=== PATIENT | male | born 1965 | race Caucasian/White ===

== ENCOUNTER 2023-12-19 20:26 | Emergency (ER) | payer OTHER ==
[~2023-12-19] VITALS: Ht 162.6 cm; Wt 81.8 kg
[2023-12-19 20:36] VITALS: BP 147/103; PULSE 111; TEMP 98.3; O2SAT 95
[2023-12-19 21:41] VITALS: RESP 16
[2023-12-19 21:49] LABS: BASOPHILS # (AUTO) 0.1 X10'3 (0-0.2); BASOPHILS % (AUTO) 1.1 % (0-1); EOSINOPHILS # (AUTO) 0.1 X10'3 (0-0.9); EOSINOPHILS % (AUTO) 0.7 % (0-6); HEMATOCRIT 46.5 % (42.0-52.0); HEMOGLOBIN 15.7 g/dl (14.0-17.9); LYMPHOCYTES # (AUTO) 2.4 X10'3 (1.1-4.8); LYMPHOCYTES % (AUTO) 19.3 % (21-51); MEAN CORPUSCULAR HEMOGLOBIN 30.6 PG (27.0-31.0); MEAN CORPUSCULAR HGB CONC 33.8 g/dL (33.0-36.5); MEAN CORPUSCULAR VOLUME 90.5 FL (78-98); MEAN PLATELET VOLUME 7.7 FL (7.4-10.4); MONOCYTES # (AUTO) 1.1 X10'3 (0-0.9); MONOCYTES % (AUTO) 8.6 % (2-12); NEUTROPHILS # (AUTO) 8.7 X10'3 (1.8-7.7); NEUTROPHILS % (AUTO) 70.3 % (42-75); PLATELET COUNT 381 X10'3 (140-440); RED BLOOD COUNT 5.14 X10'6 (4.70-6.10); RED CELL DISTRIBUTION WIDTH 13.7 % (11.5-14.5); WHITE BLOOD COUNT 12.4 X10'3 (4.5-11.0)
[2023-12-19 22:00] LABS: ALANINE AMINOTRANSFERASE 32 U/L (12-78); ALBUMIN 4.2 G/DL (3.4-5.0); ALBUMIN/GLOBULIN RATIO 1.1 (1.1-1.5); ALKALINE PHOSPHATASE 79 IU/L (46-116); ANION GAP 11 (8-16); ASPARTATE AMINO TRANSFERASE 15 U/L (10-37); BILIRUBIN,TOTAL 0.5 MG/DL (0.1-1.0); BLOOD UREA NITROGEN 14 MG/DL (7-18); BUN/CREATININE RATIO 17.3 (10.0-20.0); CALCIUM 9.2 MG/DL (8.5-10.1); CHLORIDE 99 MMOL/L (99-107); CREATININE 0.81 MG/DL (0.60-1.10); GLUCOSE 100 MG/DL (70-104); POTASSIUM 3.7 MMOL/L (3.5-5.1); SODIUM 136 MMOL/L (135-145); TOTAL CARBON DIOXIDE 26.2 MMOL/L (24-32); TOTAL PROTEIN 8.2 G/DL (6.4-8.2); eCRCL 85 ML/MIN; eGFR > 90 ML/MIN
[2023-12-19] MEDS ORDERED: aspirin 325mg tablet PO ONE (23:00)
[2023-12-19 23:13] LABS: D-DIMER < 0.19 MG/L FEU (0-0.50)
[2023-12-19 23:33] LABS: PRO BRAIN NATRIURETIC PEPTIDE 54 PG/ML (0-125)
== END 2023-12-20 00:23 | disposition home or self-care (01) ==
LOC: EEVIPCON 20:26 → ER 20:26
DX: R07.89 Other chest pain (principal); E78.00 Pure hypercholesterolemia, unspecified
CPT/HCPCS: 36415; 71045; 80053; 83880; 84484; 85025; 85379; 93005; 99285